=== PATIENT | male | born 1975 | race Caucasian/White ===

== ENCOUNTER 2020-06-18 17:46 | Inpatient (IN) | payer OTHER ==
[~2020-06-18] VITALS: Ht 172.7 cm; Wt 116.3 kg
[2020-06-18] MEDS ORDERED: LACTATED RINGERS 1,000 ML IV ONE (18:45)
[2020-06-18] MEDS ORDERED: ACETAMINOPHEN 500 MG TAB (TYLENOL) PO ONE (18:45)
[2020-06-18] MEDS ORDERED: BENZONATATE 100 MG (TESSALON) CAPSULE PO ONE (18:45)
--- NOTE | 2020-06-18 19:14 | Diagnostic Imaging Report ---
INDICATION: Sepsis. No comparison available. FINDINGS: There are diffuse abnormal alveolar and interstitial opacities throughout the lungs compatible with severe multilobar pneumonia. Lung volumes are diminished. There is no large effusion evident on the frontal view. There is no evidence of a pneumothorax. Heart size is appropriate for AP technique. IMPRESSION: Extensive interstitial and alveolar consolidation throughout the lungs compatible with a multilobar pneumonia. Dictated by: Dictated on workstation # [id number]
[2020-06-18 19:40] LABS: BASOPHILS % (AUTO) 0 % (0-10); EOSINOPHILS # (AUTO) 0.1 10^3/uL (0.0-0.3); EOSINOPHILS % (AUTO) 0 % (0-10); HEMATOCRIT 41 % (40-54); LYMPHOCYTES # (AUTO) 0.7 10^3/uL (1.0-4.0); LYMPHOCYTES % (AUTO) 6 % (12-44); MEAN CORPUSCULAR HEMOGLOBIN 29 pg (25-34); MEAN CORPUSCULAR HGB CONC 34 g/dL (32-36); MEAN CORPUSCULAR VOLUME 84 fL (80-99); MEAN PLATELET VOLUME 9.6 fL (9.0-12.2); MONOCYTES # (AUTO) 0.5 10^3/uL (0.0-1.0); MONOCYTES % (AUTO) 4 % (0-12); NEUTROPHILS # (AUTO) 10.5 10^3/uL (1.8-7.8); NEUTROPHILS % (AUTO) 87 % (42-75); PLATELET COUNT 380 10^3/uL (130-400); WHITE BLOOD COUNT 12.1 10^3/uL (4.3-11.0)
[2020-06-18 20:00] LABS: ANISOCYTOSIS SLIGHT; BAND NEUTROPHILS 1 %; BASOPHILS % (MANUAL) 0 %; EOSINOPHILS % (MANUAL) 0 %; LYMPHOCYTES % (MANUAL) 4 %; MONOCYTES % (MANUAL) 6 %; NEUTROPHILS % (MANUAL) 89 %; POLYCHROMASIA SLIGHT; TOXIC GRANULATION/VACUOLAZATIO 1+
[2020-06-18 20:05] LABS: FIBRIN DEGRADATION PRODUCTS 2.19 UG/ML (0.00-0.49); INR 1.2 (0.8-1.4); PROTHROMBIN TIME PATIENT 15.6 SEC (12.2-14.7)
[2020-06-18 20:15] LABS: ALANINE AMINOTRANSFERASE 28 U/L (0-55); ALBUMIN 3.3 GM/DL (3.2-4.5); ALKALINE PHOSPHATASE 41 U/L (40-136); BILIRUBIN,TOTAL 0.9 MG/DL (0.1-1.0); BUN/CREATININE RATIO 11; CALCIUM 8.8 MG/DL (8.5-10.1); CARBON DIOXIDE 23 MMOL/L (21-32); CHLORIDE 100 MMOL/L (98-107); CREATININE SERUM 0.97 MG/DL (0.60-1.30); GFR ESTIMATED > 60; GLUCOSE 92 MG/DL (70-105); POTASSIUM 4.2 MMOL/L (3.6-5.0); SODIUM 135 MMOL/L (135-145); TOTAL PROTEIN 7.1 GM/DL (6.4-8.2)
[2020-06-18] MEDS ORDERED: IOHEXOL 350 MG/ML 100 ML (OMNIPAQUE 350) VIAL IV ONE (20:30)
[2020-06-18] MEDS ORDERED: HOLD METFORMIN - RECEIVED CONTRAST 20 ML VIAL IV SCH (20:30)
[2020-06-18] MEDS ORDERED: NS 100 ML (IVPB) BAG IV ONE (20:30)
--- NOTE | 2020-06-18 20:44 | ED General ---
General Chief Complaint: Respiratory Problems Stated Complaint: SOB/LOW O2 Nursing Triage Note: THE PT IS AMBULATORY TO THE ROOM WITHOUT DIFFICULTY. SKIGHT SOB IS NOTED ON ARRIVAL. LOC IS NORMAL FOR THE PT. THE PT C/O SOB AND A COUGH. Nursing Sepsis Screen: No Definite Risk Source of Information: Patient Exam Limitations: No Limitations History of Present Illness Date Seen by Provider: Jun 18, 2020 Time Seen by Provider: 18:20 Initial Comments This 45-year-old gentleman presents to the emergency room with increasing shortness of breath, incessant cough, pleuritic chest pain, nausea and vomiting, and diarrhea. He has been ill since June 02 and was diagnosed with COVID-19 on June 16. He checked his oxygen saturations at home and they were in the 80s. Oxygen saturation is 83% on room air here. Patient also complains of thrush. He was seen in the [facility] walk-in clinic and was prescribed doxycycline and dexamethasone. He has worsened despite these measures. He denies any smoking or underlying cardiopulmonary problems except for hypertension. He is febrile with a temperature of 102.0. He is having trouble staying hydrated and has not eaten much in the last 4 days. Allergies and Home Medications Allergies Coded Allergies: Penicillins (Verified Allergy, Unknown, 06/18/20) Patient Home Medication List Home Medication List Reviewed: Yes Review of Systems Review of Systems Constitutional: see HPI EENTM: no symptoms reported Respiratory: see HPI Cardiovascular: no symptoms reported Gastrointestinal: see HPI Genitourinary: no symptoms reported Musculoskeletal: other (Sore abdominal muscles from coughing.) Skin: no symptoms reported Psychiatric/Neurological: No Symptoms Reported Hematologic/Lymphatic: No Symptoms Reported Immunological/Allergic: no symptoms reported Past Wuouuuu-Lnafnk-Mgpktt Hx Past Med/Social Hx: Reviewed Nursing Past Med/Soc Hx Patient Social History Recent Foreign Travel: No Contact w/Someone Who Travel: No Recent Infectious Disease Expo: No Past Medical History Surgeries: No Respiratory: No Cardiac: Yes Hypertension Reproductive Disorders: No Gastrointestinal: No Musculoskeletal: No Endocrine: No HEENT: No Cancer: No Psychosocial: No Integumentary: No Physical Exam-Suspected Sepsis Physical Exam Vital Signs Vital Signs - First Documented 06/18/20 06/18/20 06/18/20 19:54 19:55 23:40 Temp 38.3 Pulse 102 Resp 20 B/P (MAP) 126/79 (95) Pulse Ox 83 O2 Delivery Nasal Cannula O2 Flow Rate 4.00 Capillary Refill : Less Than 3 Seconds Blood Pressure Mean: 95 Height, Weight, BMI Height: '" Weight: lbs. oz. kg; 35.00 BMI Method: General Appearance: No Apparent Distress, WD/WN, Obese HEENT: PERRL/EOMI, Normal ENT Inspection, Other (Thrush on the tongue) Neck: Normal Inspection Respiratory: Lungs Clear, Normal Breath Sounds, No Accessory Muscle Use, No Respiratory Distress Cardiovascular: Regular Rate, Rhythm, No Murmur, Normal Peripheral Pulses Gastrointestinal: Normal Bowel Sounds, Soft, Tenderness (Tender musculature in the epigastrium) Extremity: Normal Inspection, Non Tender, No Calf Tenderness, No Pedal Edema Neurologic/Psychiatric: Alert, Oriented x3, No Motor/Sensory Deficits, Normal Mood/Affect, echo vascular tech II-XII Norm as Tested Skin: normal color, warm/dry Focused Exam Lactate Level 06/18/20 19:30: Lactic Acid Level 1.50 Lactic Acid Level Progress/Results/Core Measures Suspected Sepsis Recent Fever Within 48 Hours: Yes Infection Criteria Present: None New/Unexplained Altered Menta: No Sepsis Screen: No Definite Risk SIRS Temperature: Pulse: 102 Respiratory Rate: 20 Laboratory Tests 06/18/20 19:30: White Blood Count 12.1H 06/19/20 02:10: White Blood Count 8.6 Blood Pressure 126 /79 Mean: 95 06/18/20 19:30: Lactic Acid Level 1.50 Laboratory Tests 06/18/20 19:30: Creatinine 0.97, INR Comment 1.2, Platelet Count 380, Total Bilirubin 0.9 06/19/20 02:10: Creatinine 0.86, Platelet Count 333, Total Bilirubin 0.6 Results/Orders Lab Results Laboratory Tests Test 06/18/20 19:30 06/18/20 22:50 06/18/20 22:52 06/19/20 02:10 Range/Units White Blood Count 12.1 H 8.6 4.3-11.0 10^3/uL Red Blood Count 4.90 4.51 4.30-5.52 10^6/uL Hemoglobin 14.0 13.2 L 13.3-17.7 g/dL Hematocrit 41 39 L 40-54 % Mean Corpuscular Volume 84 86 80-99 fL Mean Corpuscular Hemoglobin 29 29 25-34 pg Mean Corpuscular Hemoglobin Concent 34 34 32-36 g/dL Red Cell Distribution Width 12.3 12.4 10.0-14.5 % Platelet Count 380 333 130-400 10^3/uL Mean Platelet Volume 9.6 9.9 9.0-12.2 fL Immature Granulocyte % (Auto) 2 2 % Neutrophils (%) (Auto) 87 H 92 H 42-75 % Lymphocytes (%) (Auto) 6 L 5 L 12-44 % Monocytes (%) (Auto) 4 1 0-12 % Eosinophils (%) (Auto) 0 0 0-10 % Basophils (%) (Auto) 0 0 0-10 % Neutrophils # (Auto) 10.5 H 7.9 H 1.8-7.8 10^3/uL Lymphocytes # (Auto) 0.7 L 0.4 L 1.0-4.0 10^3/uL Monocytes # (Auto) 0.5 0.1 0.0-1.0 10^3/uL Eosinophils # (Auto) 0.1 0.0 0.0-0.3 10^3/uL Basophils # (Auto) 0.0 0.0 0.0-0.1 10^3/uL Immature Granulocyte # (Auto) 0.3 H 0.2 H 0.0-0.1 10^3/uL Neutrophils % (Manual) 89 % Lymphocytes % (Manual) 4 % Monocytes % (Manual) 6 % Eosinophils % (Manual) 0 % Basophils % (Manual) 0 % Band Neutrophils 1 % Toxic Granulation 1+ Polychromasia SLIGHT Anisocytosis SLIGHT Prothrombin Time 15.6 H 12.2-14.7 SEC INR Comment 1.2 0.8-1.4 Activated Partial Thromboplast Time 29 24-35 SEC D-Dimer 2.19 H 0.00-0.49 UG/ML Sodium Level 135 135 135-145 MMOL/L Potassium Level 4.2 4.6 3.6-5.0 MMOL/L Chloride Level 100 104 98-107 MMOL/L Carbon Dioxide Level 23 20 L 21-32 MMOL/L Anion Gap 12 11 5-14 MMOL/L Blood Urea Nitrogen 11 13 7-18 MG/DL Creatinine 0.97 0.86 0.60-1.30 MG/DL Estimat Glomerular Filtration Rate > 60 > 60 BUN/Creatinine Ratio 11 15 Glucose Level 92 154 H 70-105 MG/DL Lactic Acid Level 1.50 0.50-2.00 MMOL/L Calcium Level 8.8 8.4 L 8.5-10.1 MG/DL Corrected Calcium 9.4 9.1 8.5-10.1 MG/DL Total Bilirubin 0.9 0.6 0.1-1.0 MG/DL Aspartate Amino Transf (AST/SGOT) 39 H 32 5-34 U/L Alanine Aminotransferase (ALT/SGPT) 28 25 0-55 U/L Alkaline Phosphatase 41 43 40-136 U/L Lactate Dehydrogenase 613 H 125-220 U/L Troponin I < 0.028 <0.028 NG/ML C-Reactive Protein High Sensitivity 19.64 H 17.15 H 0.00-0.50 MG/DL Total Protein 7.1 6.7 6.4-8.2 GM/DL Albumin 3.3 3.1 L 3.2-4.5 GM/DL Procalcitonin 0.31 H <0.10 NG/ML Blood Gas Puncture Site RIGHT RADIAL Blood Gas Patient Temperature 38 Arterial Blood pH 7.37 7.37-7.43 Arterial Blood Partial Pressure CO2 40 35-45 MMHG Arterial Blood Partial Pressure O2 118 H 79-93 MMHG Arterial Blood HCO3 23 23-27 MMOL/L Arterial Blood Total CO2 23.6 21.0-31.0 MMOL/L Arterial Blood Oxygen Saturation 98 94-100 % Arterial Blood Base Excess -1.8 -2.5-2.5 MMOL/L Hayes Test UNKNOWN Blood Gas Ventilator Setting NO Blood Gas Inspired Oxygen 4 Urine Color DARK YELLOW Urine Clarity CLEAR Urine pH 6.0 5-9 Urine Specific [place] <=1.005 1.016-1.022 Urine Protein TRACE H NEGATIVE Urine Glucose (UA) NEGATIVE NEGATIVE Urine Ketones NEGATIVE NEGATIVE Urine Nitrite NEGATIVE NEGATIVE Urine Bilirubin NEGATIVE NEGATIVE Urine Urobilinogen 0.2 < = 1.0 MG/DL Urine Leukocyte Esterase NEGATIVE NEGATIVE Urine RBC (Auto) NEGATIVE NEGATIVE Urine RBC NONE /HPF Urine WBC 0-2 /HPF Urine Squamous Epithelial Cells NONE /HPF Urine Crystals NONE /LPF Urine Bacteria TRACE /HPF Urine Casts NONE /LPF Urine Mucus NEGATIVE /LPF Urine Culture Indicated NO Micro Results Microbiology 06/18/20 Influenza Types A,B Antigen (LISA) - Final, Complete My Orders Orders - MARYSOL GONZALEZ MD Cbc With Automated Diff (06/18/20 18:38) Comprehensive Metabolic Panel (06/18/20 18:38) Blood Culture (06/18/20 18:38) Sputum Culture (06/18/20 18:38) Urinalysis (06/18/20 18:38) Urine Culture (06/18/20 18:38) Protime With Inr (06/18/20 18:38) Partial Thromboplastin Time (06/18/20 18:38) Chest 1 View, Ap/Pa Only (06/18/20 18:38) Ed Iv/Invasive Line Start (06/18/20 18:38) Ed Iv/Invasive Line Start (06/18/20 18:38) Vital Signs Adult Sepsis Patie Q15M (06/18/20 18:38) O2 (06/18/20 18:38) Remove Rings In Anticipation O (06/18/20 18:38) Lactic Acid Analyzer (06/18/20 18:38) Fibrin Degradation Products (06/18/20 18:38) Procalcitonin (Pct) (06/18/20 18:38) Hs C Reactive Protein (06/18/20 18:38) LDH (06/18/20 18:38) Ekg Tracing (06/18/20 18:38) Monitor-Rhythm Ecg Trace Only (06/18/20 18:38) Troponin I (06/18/20 18:38) Ed Iv/Invasive Line Start (06/18/20 18:38) Dexamethasone Injection (Decadron Inje (06/19/20 07:00) Lactated Ringers (Lr 1000 Ml Iv Solution (06/18/20 18:45) Benzonatate Capsule (Tessalon Perles) (06/18/20 18:45) Acetaminophen Tablet (Tylenol Tablet) (06/18/20 18:45) Dexamethasone Injection (Decadron Inje (06/18/20 19:00) Dexamethasone Injection (Decadron Inje (06/18/20 18:45) Manual Differential (06/18/20 19:30) Ct Angio Chest W (06/18/20 20:26) Iohexol Injection (Omnipaque 350 Mg/Ml 1 (06/18/20 20:30) Received Contrast (Hold Metformin- Contr (06/18/20 20:30) Ns (Ivpb) (Sodium Chloride 0.9% Ivpb Bag (06/18/20 20:30) Ondansetron Injection (Zofran Injectio (06/18/20 20:45) Fluconazole Tablet (Ed Only) (Diflucan T (06/18/20 20:45) Ondansetron Injection (Zofran Injectio (06/18/20 21:21) Fluconazole Tablet (Ed Only) (Diflucan T (06/18/20 21:21) Arterial Blood Gas (06/18/20 21:26) Enoxaparin Injection (Lovenox Injection) (06/18/20 22:30) Meropenem (Merrem 500 Mg) (06/18/20 22:30) Meropenem (Merrem 500 Mg) (06/18/20 22:38) Enoxaparin Injection (Lovenox Injection) (06/18/20 22:38) Influenza A And B Antigens (06/19/20 01:21) Medications Given in ED Current Medications Medications Dose Ordered Sig/Von Route Start Time Stop Time Status Last Admin Dose Admin Enoxaparin Sodium 40 mg 2230 ONCE SC 06/18/20 22:30 06/18/20 22:40 DC 06/18/20 22:52 40 MG Meropenem 500 mg/ Sterile Water 10 ml @ 200 mls/hr 2230 ONCE IV 06/18/20 22:30 06/18/20 22:40 DC 06/18/20 22:51 200 MLS/HR Vital Signs/I&O 06/18/20 06/18/20 06/18/20 06/19/20 23:28 23:40 23:50 00:00 Temp 37.0 37.0 Pulse 61 70 70 Resp 18 B/P (MAP) 111/68 120/69 120/69 (86) Pulse Ox 94 96 96 O2 Delivery Nasal Cannula Nasal Cannula Nasal Cannula O2 Flow Rate 4.00 4.00 4.00 06/19/20 06/19/20 06/19/20 06/19/20 01:00 03:51 07:00 08:00 Temp 35.9 36.0 Pulse 61 56 62 63 Resp 17 20 B/P (MAP) 121/79 (93) 117/75 (89) Pulse Ox 96 96 O2 Delivery Nasal Cannula Nasal Cannula O2 Flow Rate 4.00 4.00 06/19/20 00:00 Intake Total 1000 ml Balance 1000 ml Capillary Refill : Less Than 3 Seconds Blood Pressure Mean: 95 Progress Note : Time: 20:45 Progress Note Patient was seen and examined. IV fluids were infused and medications were given for symptom management. He was found to be hypoxic with oxygen saturation of 83% on room air. Covid specific therapies included dexamethasone 6 mg IV. Case was reviewed with Dr. Marks who requested antibiotics and Lovenox to be administered as well. CT angiogram of the chest was obtained due to elevated D- dimer. No pulmonary emboli were found. I discussed treatment options with remdesivir and convalescent plasma. Patient consents to both treatments. ECG Initial ECG Impression Date: Jun 18, 2020 Initial ECG Impression Time: 18:41 Initial ECG Rate: 77 Initial ECG Rhythm: Normal Sinus Comment Normal sinus rhythm with no ischemic ST elevation or depression. No abnormal intervals or axis deviation. Diagnostic Imaging Diagonstic Imaging: Xray Plain Films/CT/US/NM/MRI: chest Comments Chest x-ray viewed by me and report reviewed. See report below: NAME: EARL,JIMMY [facility] REC#: [id number] PT STATUS: REG ER : 1975 PHYSICIAN: MARYSOL GONZALEZ MD ADMIT DATE: 06/18/20/ER Signed Date of Exam:06/18/20 CHEST 1 VIEW, AP/PA ONLY INDICATION: Sepsis. No comparison available. FINDINGS: There are diffuse abnormal alveolar and interstitial opacities throughout the lungs compatible with severe multilobar pneumonia. Lung volumes are diminished. There is no large effusion evident on the frontal view. There is no evidence of a pneumothorax. Heart size is appropriate for AP technique. IMPRESSION: Extensive interstitial and alveolar consolidation throughout the lungs compatible with a multilobar pneumonia. Dictated by: Dictated on workstation # [id number] Dict: 06/18/201900 Trans: 06/18/201923 [facility] [id number] Interpreted by: MARCEL WOODS MD Electronically signed by: MARCEL WOODS MD 06/18/201923 Diagonstic Imaging: CT Plain Films/CT/US/NM/MRI: chest Comments CT angiogram chest viewed by me and report reviewed. See report below: NAME: MARIANNA ELLIOTT REC#: [id number] PT STATUS: REG ER : 1975 PHYSICIAN: MARYSOL GONZALEZ MD ADMIT DATE: 06/18/20/ER Signed Date of Exam:06/18/20 CT ANGIO CHEST W PROCEDURE: CT angiography of the chest with contrast. TECHNIQUE: Multiple contiguous axial images were obtained through the chest after uneventful bolus administration of intravenous contrast. 3D reconstructed CTA MIP acquisitions were also performed. Auto Exposure Controls were utilized during the CT exam to meet ALARA standards for radiation dose reduction. INDICATION: Pneumonia. Low O2 sats and shortness of breath. Evaluate for a pulmonary embolism. FINDINGS: There are no CT angiographic findings of a filling defect within the main pulmonary arteries or within the proximal intralobar arteries. There is more limited assessment of the tiny subsegmental branches due to respiratory motion. There are no findings to suggest right ventricular strain. The left ventricle is larger than the right. There is no significant reflux of contrast into the IVC. Aorta is normal in caliber without dissection or aneurysm. Heart size appears appropriate. There is no pericardial collection. Extensive alveolar and interstitial infiltrates are present throughout the lungs compatible with the patient's history of Covid pneumonia. There are trace bilateral pleural effusions. There is no pneumothorax. No pathologic mediastinal or hilar adenopathy demonstrated. The upper abdomen demonstrates no acute process. There is a tiny hiatal hernia. No acute or suspicious osseous abnormality demonstrated within the thoracic spine or within the thorax. IMPRESSION: 1. No findings of a central pulmonary artery filling defect within the main pulmonary arteries or intralobar arteries. There is more limited assessment of the small subsegmental branches due to respiratory motion but no convincing evidence of embolus. 2. No findings of right ventricular strain. 3. Thoracic aorta unremarkable. 4. Extensive pulmonary interstitial and alveolar consolidation compatible with multifocal pneumonia and compatible with history of Covid positivity. 5. Trace effusions. 6. No adenopathy. Dictated by: Dictated on workstation # [id number] Dict: 06/18/202143 Trans: 06/18/202157 [facility] [id number] Interpreted by: MARCEL WOODS MD Electronically signed by: MARCEL WOODS MD 06/18/20 [id number] Departure Communication (Admissions) Time/Spoke to Admitting Phy: 21:25 Dr. Marks Impression Primary Impression: COVID-19 Additional Impressions: Hypoxia Nausea vomiting and diarrhea Pleuritic chest pain Disposition: ADMITTED INPATIENT Condition: Improved Admissions Decision to Admit Reason: Admit from ER (General) Decision to Admit/Date: Jun 18, 2020 Time/Decision to Admit Time: 18:25 MARYSOL GONZALEZ MD Jun 18, 2020 20:43
[2020-06-18] MEDS ORDERED: FLUCONAZOLE 150 MG TABLET (ED ONLY) PO ONE (20:45)
[2020-06-18] MEDS ORDERED: ONDANSETRON 4 MG/2 ML (SDV) Z0FRAN IVP ONE (20:45)
[2020-06-18] MEDS ORDERED: ONDANSETRON 4 MG/2 ML (SDV) Z0FRAN ONE (21:21)
[2020-06-18] MEDS ORDERED: FLUCONAZOLE 150 MG TABLET (ED ONLY) ONE (21:21)
--- NOTE | 2020-06-18 21:57 | Diagnostic Imaging Report ---
PROCEDURE: CT angiography of the chest with contrast. TECHNIQUE: Multiple contiguous axial images were obtained through the chest after uneventful bolus administration of intravenous contrast. 3D reconstructed CTA MIP acquisitions were also performed. Auto Exposure Controls were utilized during the CT exam to meet ALARA standards for radiation dose reduction. INDICATION: Pneumonia. Low O2 sats and shortness of breath. Evaluate for a pulmonary embolism. FINDINGS: There are no CT angiographic findings of a filling defect within the main pulmonary arteries or within the proximal intralobar arteries. There is more limited assessment of the tiny subsegmental branches due to respiratory motion. There are no findings to suggest right ventricular strain. The left ventricle is larger than the right. There is no significant reflux of contrast into the IVC. Aorta is normal in caliber without dissection or aneurysm. Heart size appears appropriate. There is no pericardial collection. Extensive alveolar and interstitial infiltrates are present throughout the lungs compatible with the patient's history of Covid pneumonia. There are trace bilateral pleural effusions. There is no pneumothorax. No pathologic mediastinal or hilar adenopathy demonstrated. The upper abdomen demonstrates no acute process. There is a tiny hiatal hernia. No acute or suspicious osseous abnormality demonstrated within the thoracic spine or within the thorax. IMPRESSION: 1. No findings of a central pulmonary artery filling defect within the main pulmonary arteries or intralobar arteries. There is more limited assessment of the small subsegmental branches due to respiratory motion but no convincing evidence of embolus. 2. No findings of right ventricular strain. 3. Thoracic aorta unremarkable. 4. Extensive pulmonary interstitial and alveolar consolidation compatible with multifocal pneumonia and compatible with history of Covid positivity. 5. Trace effusions. 6. No adenopathy. Dictated by: Dictated on workstation # [id number]
[2020-06-18] MEDS ORDERED: ENOXAPARIN 40 MG/0.4 ML (LOVENOX) SYR SC ONE (22:30)
[2020-06-18] MEDS ORDERED: MEROPENEM 500 MG in WATER (STERILE) FOR INJECTION 10 ML IV ONE (22:30)
[2020-06-18] MEDS ORDERED: MEROPENEM 500 MG VIAL (MERREM) IV ONE (22:38)
[2020-06-18] MEDS ORDERED: ENOXAPARIN 40 MG/0.4 ML (LOVENOX) SYR ONE (22:38)
[2020-06-18] MEDS ORDERED: WATER (STERILE) FOR INJECTION 10 ML ONE (22:39)
[2020-06-18 22:56] LABS: ABG BASE EXCESS -1.8 MMOL/L (-2.5-2.5); ABG OXYGEN SATURATION 98 % (94-100); ABG PCO2 40 MMHG (35-45); ABG PH 7.37 (7.37-7.43); ABG PO2 118 MMHG (79-93); ABG TCO2 23.6 MMOL/L (21.0-31.0); INSPIRED O2 4; PATIENT TEMP 38; VENTILATOR NO
[2020-06-18 22:58] LABS: BILIRUBIN,URINE NEGATIVE (NEGATIVE); CLARITY,URINE CLEAR; GLUCOSE, URINE (UA) NEGATIVE (NEGATIVE); KETONES,URINE NEGATIVE (NEGATIVE); LEUKOCYTE ESTERASE ,URINE NEGATIVE (NEGATIVE); NITRITE,URINE NEGATIVE (NEGATIVE); PROTEIN,URINE TRACE (NEGATIVE)
[2020-06-18 23:03] LABS: COLOR,URINE DARK YELLOW
[2020-06-18 23:04] LABS: BACTERIA,URINE TRACE /HPF; WBC,URINE 0-2 /HPF
[2020-06-18 23:40] VITALS: BP 120/69
--- NOTE | 2020-06-18 23:40 | NUR ---
MARIANNA ELLIOTT admitted to room 427-1, with an admitting diagnosis of COVID-19, HYPOXIA, THRUSH, HYPOVOLEMIA, on 06/18/20 from ED via WHEELCHAIR, accompanied by STAFF.MARIANNA ELLIOTT introduced to surroundings, call light, bed controls, phone, TV, temperature control, lights, meal times, smoking policy, visitor policy, side rail policy, bathrooms and showers. Patient Rights given to patient in the handbook. MARIANNA ELLIOTT verbalizes understanding that [facility] is not responsible for the loss or damage to any personal effects or valuables that are kept in the patients posession during their hospitalization. Patient and/or family were informed about the Rapid Response Team and its purpose.
[2020-06-18] MEDS ORDERED: ACETAMINOPHEN 500 MG TAB (TYLENOL) PO PRN (23:45)
[2020-06-18] MEDS ORDERED: IBUPROFEN 600 MG (MOTRIN) TAB PO PRN (23:45)
[2020-06-18] MEDS ORDERED: ENOXAPARIN 40 MG/0.4 ML (LOVENOX) SYR SC SCH (23:45)
[2020-06-18] MEDS ORDERED: ONDANSETRON 4 MG/2 ML (SDV) Z0FRAN IV PRN (23:45)
[2020-06-18] MEDS ORDERED: fentaNYL INJECTION 100 MCG/2 ML AMP IV PRN (23:45)
[2020-06-19] VITALS (9 sets, daily range): BP systolic 114–143; BP diastolic 56–82
[2020-06-19] MEDS: LACTATED RINGERS 1,000 ML IV SCH ×3 (00:10→19:56)
[2020-06-19 02:44] LABS: BASOPHILS % (AUTO) 0 % (0-10); EOSINOPHILS % (AUTO) 0 % (0-10); HEMATOCRIT 39 % (40-54); HEMOGLOBIN 13.2 g/dL (13.3-17.7); LYMPHOCYTES # (AUTO) 0.4 10^3/uL (1.0-4.0); LYMPHOCYTES % (AUTO) 5 % (12-44); MEAN CORPUSCULAR HEMOGLOBIN 29 pg (25-34); MEAN CORPUSCULAR HGB CONC 34 g/dL (32-36); MEAN CORPUSCULAR VOLUME 86 fL (80-99); MEAN PLATELET VOLUME 9.9 fL (9.0-12.2); MONOCYTES # (AUTO) 0.1 10^3/uL (0.0-1.0); MONOCYTES % (AUTO) 1 % (0-12); NEUTROPHILS # (AUTO) 7.9 10^3/uL (1.8-7.8); NEUTROPHILS % (AUTO) 92 % (42-75); PLATELET COUNT 333 10^3/uL (130-400); WHITE BLOOD COUNT 8.6 10^3/uL (4.3-11.0)
[2020-06-19 02:52] LABS: ALBUMIN 3.1 GM/DL (3.2-4.5); CHLORIDE 104 MMOL/L (98-107); POTASSIUM 4.6 MMOL/L (3.6-5.0); SODIUM 135 MMOL/L (135-145)
[2020-06-19 02:53] LABS: CALCIUM 8.4 MG/DL (8.5-10.1)
[2020-06-19 02:54] LABS: GLUCOSE 154 MG/DL (70-105); TOTAL PROTEIN 6.7 GM/DL (6.4-8.2)
[2020-06-19 02:55] LABS: CARBON DIOXIDE 20 MMOL/L (21-32)
[2020-06-19 02:56] LABS: BILIRUBIN,TOTAL 0.6 MG/DL (0.1-1.0)
[2020-06-19 02:58] LABS: ALKALINE PHOSPHATASE 43 U/L (40-136); CREATININE SERUM 0.86 MG/DL (0.60-1.30); GFR ESTIMATED > 60
[2020-06-19 02:59] LABS: BUN/CREATININE RATIO 15
[2020-06-19 03:01] LABS: ALANINE AMINOTRANSFERASE 25 U/L (0-55)
--- NOTE | 2020-06-19 03:52 | NUR ---
blood bank notified this nurse the convalescent plasma was ready for pt. this nurse to pt's room to obtain consent. this nurse explained the purpose of it and the process of receiving it, pt seems hesitant, and says he wants to wait until he talks to doctor about it, says that " i don't want to get it if i don't need it".
[2020-06-19] MEDS: MEROPENEM 500 MG/SWFI 10 ML IV PUSH IV SCH ×8 (06:19→22:40)
[2020-06-19] MEDS ORDERED: REMDESIVIR 200 MG/NS 250 ML IVPB IV NR ×2 (09:00)
[2020-06-19] MEDS: ENOXAPARIN 40 MG/0.4 ML (LOVENOX) SYR SC SCH ×2 (10:40→21:30)
[2020-06-19] MEDS: NYSTATIN ORAL SUSP 5 ML UDC PO SCH ×4 (10:40→21:30)
[2020-06-19] MEDS ORDERED: DOXY100T2 PO (13:37)
[2020-06-19] MEDS ORDERED: DEXA4TAB PO (13:37)
[2020-06-19] MEDS ORDERED: HYDR25TA4 PO (13:37)
[2020-06-19] MEDS ORDERED: OLME40TA18 PO (13:37)
[2020-06-19] MEDS ORDERED: FLUT12AE6 IH (13:37)
[2020-06-19] MEDS ORDERED: ACET-2267 PO (13:37)
[2020-06-19] MEDS ORDERED: PROM5SYR PO (13:37)
[2020-06-19] MEDS ORDERED: PHEN-832 PO (13:37)
[2020-06-19] MEDS ORDERED: CARV12.53 PO (14:05)
--- NOTE | 2020-06-19 14:06 | NUR ---
SPOKE WITH THE PT (CALLED THE ROOM PHONE), WENT THRU THE EXT MED HISTORY AND CALLED JOHNNIE TO COMPLETE THE MED REC 01-09-2020 CARVEDILOL 12.5MG #60/30DS- PT INSISTS HE TAKES PRESCRIBED, THEREFORE I INCLUDED ON THE MED REC WITH THE LAST FILL DATE 05-06-2020 OLMESARTAN 40MG #30/30DS 05-06-2020 HCTZ #30/30DS 06-09-2020 ADVAIR 230/21 #1 06-09-2020 DEXAMETHASONE 4MG #15/10DS 06-09-2020 DOXYCYCLINE 100MG #20//10DS 06-09-2020 PROMETHAZINE W/ CODEINE #120ML OTC MEDS: TYLENOL SUDAFED PE
--- NOTE | 2020-06-19 15:33 | NUR ---
"RD ASSESSMENT PMHx: HTN; PT INTERACTION: Note pt is currently in COVID isolation, per chart review. Note all diet information for consult for MST score is per Ede RN, or per chart review. Ede states current appetite appears not great. Note avg PO intake 100% x2meal, per chart review. Ede states no current issues with nausea, vomiting, constipation, or diarrhea that she is aware of. Note pt had recent issues with n/v/d per ED Provider note. Note no BM has been recorded, and pt not currently on bowel regimen per chart review. Note unable to determine recent wt hx, per chart review. Note unable to conduct visual assessment d/t isolation precautions. Given PO intake, unknown wt hx, and lack of visual assessment, this RD is unable to determine if pt meets criteria for malnutrition per ASPEN guidelines. Given avg PO intake, it is unlikely pt meets criteria. ABNORMAL NUTRITION-RELATED LAB VALUES LOW: Ca 8.4; alb 3.1; HIGH: glu 154 Est. kcal needs: 2040-2122 kcal | 15-18 kcal/kg Est. Pro needs: 93-116 g Pro | 0.8-1.0 g Pro/kg PES STATEMENT: Given current PO intake, no nutrition diagnosis at this time (NO-1.1). INTERVENTION: Continue with current diet order of Regular diet. DC current supplementation order of Ensure Enlive with meals, as pt is consuming >75% of meals. Will continue to follow and reassess as pt needs, intake, and status change. Jc BRAVO, MS RD LD [phone] cell"
--- NOTE | 2020-06-19 17:20 | History & Physical-Hospitalist ---
History of Present Illness HPI/Chief Complaint Wilfrido Rivera is a 45-year-old male with past medical history of hypertension, obesity, who presented with shortness of breath. He had been diagnosed with COVID about a week ago. He says his symptoms have been going on for a couple weeks. He continues have a cough. He is not having any fevers. He denies any change in taste or smell. He denies any chest pain. He denies any abdominal pain, nausea, or vomiting. He says he has an episode of diarrhea every day. He has been taking dexamethasone and doxycycline as an outpatient. Source: patient Exam Limitations: no limitations Date Seen 06/19/20 Time Seen by a Provider: 11:15 Attending Physician Wendy Marks DO PCP No,Local Physician Referring Physician Date of Admission Jun 18, 2020 at 22:38 Home Medications & Allergies Home Medications Reviewed patient Home Medication Reconciliation performed by pharmacy medication reconciliations obstetrics technician and/or nursing. Patients Allergies have been reviewed. Allergies Allergies Coded Allergies Penicillins (Verified Allergy, Unknown, 06/18/20) Past Gpcuyjb-Nnfczj-Odveqh Hx Past Med/Social Hx: Reviewed Nursing Past Med/Soc Hx Patient Social History Recent Foreign Travel: No Contact w/other who traveled: No Recent Infectious Disease Expo: No (no known contact ) Past Medical History Cardiac: Hypertension Reproductive: No Review of Systems Constitutional: no symptoms reported EENTM: no symptoms reported Respiratory: cough, short of breath Cardiovascular: no symptoms reported Gastrointestinal: diarrhea Genitourinary: no symptoms reported Musculoskeletal: no symptoms reported Skin: no symptoms reported Psychiatric/Neurological: No Symptoms Reported Physical Exam Physical Exam Vital Signs Vital Signs - First Documented 06/18/20 06/18/20 06/18/20 19:54 19:55 23:40 Temp 38.3 Pulse 102 Resp 20 B/P (MAP) 126/79 (95) Pulse Ox 83 O2 Delivery Nasal Cannula O2 Flow Rate 4.00 Capillary Refill : Less Than 3 Seconds Height, Weight, BMI Height: '" Weight: lbs. oz. kg; 38.99 BMI Method: General Appearance: No Apparent Distress, Obese HEENT: PERRL/EOMI, Pharynx Normal Neck: Normal Inspection Respiratory: Lungs Clear, Normal Breath Sounds, No Respiratory Distress Cardiovascular: Regular Rate, Rhythm, No Edema, No Murmur Gastrointestinal: Normal Bowel Sounds, Non Tender, Soft Extremity: Normal Inspection, Non Tender, No Pedal Edema Neurologic/Psychiatric: Alert, Oriented x3, No Motor/Sensory Deficits, Normal Mood/Affect Skin: Normal Color, Warm/Dry Results Results/Procedures Labs Laboratory Tests 06/18/20 19:30 06/19/20 02:10 Patient resulted labs reviewed. Imaging: Reviewed Imaging Report Assessment/Plan Admission Diagnosis acute respiratory failure due to COVID-19 Admission Status: Inpatient Order (span 2 midnights) Reason for Inpatient Admission: respiratory failure requiring supplemental oxygen COVID-19 requiring IV medications Assessment and Plan Acute respiratory failure due to COVID-19 Pneumonia COVID positive at outside facility [place] Chest with no PE, extensive consolidations Procalcitonin elevated D-dimer mildly elevated Started on Decadron and Remdesivir Convalescent plasma ordered Meropenem for bacterial pneumonia Supplemental oxygen as needed HTN Continue home meds Obesity Clinically significant, no acute management needs DVT Prophylaxis: Lovenox Diagnosis/Problems Diagnosis/Problems (1) Acute respiratory failure due to COVID-19 Status: Acute (2) Pneumonia Status: Acute (3) HTN (hypertension) Status: Chronic (4) Obesity Status: Chronic Clinical Quality Measures DVT/VTE Risk/Contraindication: Risk Factor Score Per Nursin RFS Level Per Nursing on Admit: 3=High INA MARTINEZ MD Jun 19, 2020 17:20
--- NOTE | 2020-06-19 20:20 | NUR ---
Dr. Bartlett notified of not having home medication of Advair inhaler 230/21mcg - ok to substitute Advair 115/21mcg per . Pharmacy notified.
[2020-06-19] MEDS ORDERED: NON-FORMULARY MEDICATION 1 EA EA (Fluticasone/Salmeterol (Advair Hfa 230-21 Mcg Inhaler) 2 IH SCH (21:00)
[2020-06-19] MEDS: CARVEDILOL 12.5 MG (COREG) TABLET PO SCH (21:30)
[2020-06-19] MEDS: ADVAIR HFA 115/21 MCG INHALER 8 GM IH SCH (21:36)
--- NOTE | 2020-06-19 21:50 | NUR ---
New order rec for Robitussin DM 5ml q [address] Bartlett
[2020-06-19] MEDS ORDERED: NS IV 500 ML 500 ML ONE (22:23)
[2020-06-19] MEDS: guaiFENesin/DM (ROBITUSSIN DM) 10 ML UDC PO PRN (22:40)
[2020-06-20 00:25] VITALS: BP 130/74
[2020-06-20 04:12] VITALS: BP 120/70
[2020-06-20] MEDS: MEROPENEM 500 MG/SWFI 10 ML IV PUSH IV SCH ×8 (04:20→22:56)
[2020-06-20] MEDS: LACTATED RINGERS 1,000 ML IV SCH (04:20)
[2020-06-20 06:01] LABS: ALBUMIN 2.9 GM/DL (3.2-4.5)
[2020-06-20 06:02] LABS: CHLORIDE 105 MMOL/L (98-107); POTASSIUM 4.2 MMOL/L (3.6-5.0); SODIUM 138 MMOL/L (135-145)
[2020-06-20 06:03] LABS: CALCIUM 8.1 MG/DL (8.5-10.1)
[2020-06-20 06:04] LABS: GLUCOSE 152 MG/DL (70-105)
[2020-06-20 06:05] LABS: CARBON DIOXIDE 23 MMOL/L (21-32)
[2020-06-20 06:06] LABS: BILIRUBIN,TOTAL 0.3 MG/DL (0.1-1.0)
[2020-06-20 06:08] LABS: ALKALINE PHOSPHATASE 39 U/L (40-136); CREATININE SERUM 0.77 MG/DL (0.60-1.30); GFR ESTIMATED > 60
[2020-06-20 06:09] LABS: BUN/CREATININE RATIO 18
[2020-06-20 06:11] LABS: ALANINE AMINOTRANSFERASE 21 U/L (0-55)
[2020-06-20 08:05] VITALS: BP 123/75
--- NOTE | 2020-06-20 08:30 | NUR ---
PATIENT O2 88% ON 4L. PATIENT REQUIRED 10L HIGH FLOW TO MAINTAIN O2 92%. PATIENT IS NOT DYSPNEIC, DENIES C/O. RR 18. CONT TO MONITOR.
[2020-06-20] MEDS: NYSTATIN ORAL SUSP 5 ML UDC PO SCH ×4 (10:03→21:02)
[2020-06-20] MEDS: CARVEDILOL 12.5 MG (COREG) TABLET PO SCH ×2 (10:03→20:55)
[2020-06-20] MEDS: VALSARTAN 160 MG (DIOVAN) TABLET PO SCH (10:04)
[2020-06-20] MEDS: REMDESIVIR INJ 100 MG in NS (IVPB) 230 ML IV SCH (11:17)
[2020-06-20] MEDS: ADVAIR HFA 115/21 MCG INHALER 8 GM IH SCH ×3 (11:20→23:07)
[2020-06-20 11:30] VITALS: BP 128/78
[2020-06-20] MEDS ORDERED: guaiFENesin (MUCINEX) 600 MG TAB PO ONE (12:00)
[2020-06-20] MEDS: guaiFENesin/DM (ROBITUSSIN DM) 10 ML UDC PO PRN ×2 (12:20→20:54)
--- NOTE | 2020-06-20 13:58 | NUR ---
14 MIN CONVERSATION PER PATIENT REQUEST WITH . UPDATED ON PATIENT'S CONDITION, MEDICATION. INQUIRED WITH THIS RN HOW LONG SHE AND THE KIDS WILL BE QUARANTINED? THIS RN REFERRED TO HEALTH DEPARTMENT REGARDING HERSELF AND CHILDREN QUARANTINE TIME. ELABORATED ON HER HISTORY, THIS RN PROVIDED NO ADVICE FOR PERSONAL DECISIONS AND HER HEALTHCARE, ONLY LISTENED AND REFERRED TO HEALTH DEPT.
[2020-06-20 15:49] VITALS: BP 132/79
--- NOTE | 2020-06-20 16:08 | Progress Note - Hospitalist ---
Subjective HPI/CC On Admission Date Seen by Provider: Jun 20, 2020 Time Seen by Provider: 11:30 Wilfrido Rivera is a 45-year-old male with past medical history of hypertension, obesity, who presented with shortness of breath. He had been diagnosed with COVID about a week ago. He says his symptoms have been going on for a couple weeks. He continues have a cough. He is not having any fevers. He denies any change in taste or smell. He denies any chest pain. He denies any abdominal pain, nausea, or vomiting. He says he has an episode of diarrhea every day. He has been taking dexamethasone and doxycycline as an outpatient. Subjective/Events-last exam He slept well. He has been short of breath. He has a very bad cough. He denies fevers. He has been up moving around. He has been eating and drinking. He is not able to lay prone, but can lay on his side. Focused Exam Lactate Level 06/18/20 19:30: Lactic Acid Level 1.50 Objective Exam Vital Signs Vital Signs Date Time Temp Pulse Resp B/P (MAP) Pulse Ox O2 Delivery O2 Flow Rate FiO2 06/20/20 15:49 36.8 63 20 132/79 (96) 98 High Flow N/C 9.00 Capillary Refill : Less Than 3 Seconds General Appearance: No Apparent Distress, Obese Respiratory: Lungs Clear, Normal Breath Sounds, No Respiratory Distress Cardiovascular: Regular Rate, Rhythm, No Edema, No Murmur Gastrointestinal: Normal Bowel Sounds, Non Tender, Soft Extremity: Normal Inspection, Non Tender, No Pedal Edema Neurologic/Psychiatric: Alert, Oriented x3, No Motor/Sensory Deficits, Normal Mood/Affect Skin: Normal Color, Warm/Dry Results/Procedures Lab Laboratory Tests 06/20/20 05:30 Patient resulted labs reviewed. Imaging: Reviewed Imaging Report Assessment/Plan Assessment and Plan Assess & Plan/Chief Complaint Acute respiratory failure due to COVID-19 Pneumonia Oxygen requirement increased from yesterday Continue Decadron, day 2/ Continue Remdesivir, day 2/5 s/p 1 unit convalescent plasma Continue Meropenem Supplemental oxygen as needed HTN Continue home meds Obesity Clinically significant, no acute management needs DVT Prophylaxis: Lovenox Diagnosis/Problems Diagnosis/Problems (1) Acute respiratory failure due to COVID-19 Status: Acute (2) Pneumonia Status: Acute (3) HTN (hypertension) Status: Chronic (4) Obesity Status: Chronic Clinical Quality Measures DVT/VTE Risk/Contraindication: Risk Factor Score Per Nursin RFS Level Per Nursing on Admit: 3=High INA MARTINEZ MD Jun 20, 2020 16:08
--- NOTE | 2020-06-20 17:32 | NUR ---
patient 's called for an update. no new updates to report. sylwia remains at 10L HF, no c/o paitent' mother in law called earlier in day as well and spoke with this rn
[2020-06-20 19:45] VITALS: BP 121/76
[2020-06-20] MEDS: ENOXAPARIN 40 MG/0.4 ML (LOVENOX) SYR SC SCH (20:54)
[2020-06-20] MEDS: guaiFENesin (MUCINEX) 600 MG TAB PO SCH (20:55)
[2020-06-21 00:05] VITALS: BP 121/75
[2020-06-21 04:16] VITALS: BP 138/77
[2020-06-21] MEDS: MEROPENEM 500 MG/SWFI 10 ML IV PUSH IV SCH ×8 (05:29→22:00)
[2020-06-21 05:55] LABS: ALBUMIN 2.8 GM/DL (3.2-4.5); CHLORIDE 106 MMOL/L (98-107); POTASSIUM 4.4 MMOL/L (3.6-5.0); SODIUM 139 MMOL/L (135-145)
[2020-06-21 05:57] LABS: GLUCOSE 115 MG/DL (70-105); TOTAL PROTEIN 5.5 GM/DL (6.4-8.2)
[2020-06-21 05:58] LABS: CARBON DIOXIDE 23 MMOL/L (21-32)
[2020-06-21 05:59] LABS: BILIRUBIN,TOTAL 0.3 MG/DL (0.1-1.0)
[2020-06-21 06:01] LABS: ALKALINE PHOSPHATASE 40 U/L (40-136); CREATININE SERUM 0.75 MG/DL (0.60-1.30); GFR ESTIMATED > 60
[2020-06-21 06:02] LABS: BUN/CREATININE RATIO 20
[2020-06-21 06:04] LABS: ALANINE AMINOTRANSFERASE 18 U/L (0-55)
[2020-06-21 08:00] VITALS: BP_SYST 123; BP_SYST 138; BP_DIAS 75; BP_DIAS 77
[2020-06-21] MEDS: ADVAIR HFA 115/21 MCG INHALER 8 GM IH SCH ×2 (08:08→21:24)
[2020-06-21] MEDS: NYSTATIN ORAL SUSP 5 ML UDC PO SCH ×4 (08:36→21:20)
[2020-06-21] MEDS: VALSARTAN 160 MG (DIOVAN) TABLET PO SCH (08:37)
[2020-06-21] MEDS: CARVEDILOL 12.5 MG (COREG) TABLET PO SCH ×2 (08:37→21:20)
[2020-06-21] MEDS: guaiFENesin (MUCINEX) 600 MG TAB PO SCH ×2 (08:38→21:20)
[2020-06-21] MEDS: REMDESIVIR INJ 100 MG in NS (IVPB) 230 ML IV SCH (11:53)
[2020-06-21 12:00] VITALS: BP 130/75
--- NOTE | 2020-06-21 12:39 | Progress Note - Hospitalist ---
Subjective HPI/CC On Admission Date Seen by Provider: Jun 21, 2020 Time Seen by Provider: 10:35 Wilfrido Rivera is a 45-year-old male with past medical history of hypertension, obesity, who presented with shortness of breath. He had been diagnosed with COVID about a week ago. He says his symptoms have been going on for a couple weeks. He continues have a cough. He is not having any fevers. He denies any change in taste or smell. He denies any chest pain. He denies any abdominal pain, nausea, or vomiting. He says he has an episode of diarrhea every day. He has been taking dexamethasone and doxycycline as an outpatient. Subjective/Events-last exam he is sleeping upon my arrival. He says he is feeling a bit better. He continues have a bad cough. He has been bringing up a bit more sputum. He denies any fevers. He has no other complaints or concerns. Focused Exam Lactate Level 06/18/20 19:30: Lactic Acid Level 1.50 Objective Exam Vital Signs Vital Signs Date Time Temp Pulse Resp B/P (MAP) Pulse Ox O2 Delivery O2 Flow Rate FiO2 06/21/20 12:00 36.0 60 20 130/75 (93) 94 High Flow N/C 9.00 9.00 Capillary Refill : Less Than 3 Seconds General Appearance: No Apparent Distress, Obese Respiratory: Lungs Clear, Normal Breath Sounds, No Respiratory Distress Cardiovascular: Regular Rate, Rhythm, No Edema, No Murmur Gastrointestinal: Normal Bowel Sounds, Non Tender, Soft Extremity: Normal Inspection, Non Tender, No Pedal Edema Neurologic/Psychiatric: Alert, Normal Mood/Affect Skin: Normal Color, Warm/Dry Results/Procedures Lab Laboratory Tests 06/21/20 05:15 Patient resulted labs reviewed. Imaging: Reviewed Imaging Report Assessment/Plan Assessment and Plan Assess & Plan/Chief Complaint Acute respiratory failure due to COVID-19 Pneumonia Oxygen requirement stable, 9 L Continue Decadron, day 3/10 Continue Remdesivir, day 3/5 s/p 1 unit convalescent plasma Continue Meropenem HTN Continue home meds Obesity Clinically significant, no acute management needs DVT Prophylaxis: Lovenox Diagnosis/Problems Diagnosis/Problems (1) Acute respiratory failure due to COVID-19 Status: Acute (2) Pneumonia Status: Acute (3) HTN (hypertension) Status: Chronic (4) Obesity Status: Chronic Clinical Quality Measures DVT/VTE Risk/Contraindication: Risk Factor Score Per Nursin RFS Level Per Nursing on Admit: 3=High INA MARTINEZ MD Jun 21, 2020 12:39
[2020-06-21 15:51] VITALS: BP 121/91
[2020-06-21 19:41] VITALS: BP 141/82
[2020-06-21] MEDS: ENOXAPARIN 40 MG/0.4 ML (LOVENOX) SYR SC SCH (21:20)
[2020-06-21] MEDS: guaiFENesin/DM (ROBITUSSIN DM) 10 ML UDC PO PRN (21:25)
[2020-06-22 00:06] VITALS: BP 135/85
[2020-06-22] MEDS: MEROPENEM 500 MG/SWFI 10 ML IV PUSH IV SCH ×8 (04:24→22:46)
[2020-06-22 04:27] VITALS: BP 122/69
[2020-06-22 06:30] LABS: ALBUMIN 2.8 GM/DL (3.2-4.5); CHLORIDE 108 MMOL/L (98-107); POTASSIUM 4.3 MMOL/L (3.6-5.0); SODIUM 140 MMOL/L (135-145)
[2020-06-22 06:31] LABS: CALCIUM 7.9 MG/DL (8.5-10.1)
[2020-06-22 06:32] LABS: GLUCOSE 97 MG/DL (70-105)
[2020-06-22 06:33] LABS: TOTAL PROTEIN 5.4 GM/DL (6.4-8.2)
[2020-06-22 06:34] LABS: BILIRUBIN,TOTAL 0.3 MG/DL (0.1-1.0); CARBON DIOXIDE 24 MMOL/L (21-32)
[2020-06-22 06:36] LABS: ALKALINE PHOSPHATASE 42 U/L (40-136); CREATININE SERUM 0.74 MG/DL (0.60-1.30); GFR ESTIMATED > 60
[2020-06-22 06:37] LABS: BUN/CREATININE RATIO 20
[2020-06-22 06:39] LABS: ALANINE AMINOTRANSFERASE 28 U/L (0-55)
[2020-06-22 08:00] VITALS: BP 113/77
[2020-06-22] MEDS: VALSARTAN 160 MG (DIOVAN) TABLET PO SCH (08:18)
[2020-06-22] MEDS: NYSTATIN ORAL SUSP 5 ML UDC PO SCH ×4 (08:18→20:11)
[2020-06-22] MEDS: guaiFENesin (MUCINEX) 600 MG TAB PO SCH ×2 (08:18→20:29)
[2020-06-22] MEDS: CARVEDILOL 12.5 MG (COREG) TABLET PO SCH ×2 (08:18→20:11)
[2020-06-22] MEDS: ADVAIR HFA 115/21 MCG INHALER 8 GM IH SCH ×2 (08:20→15:08)
[2020-06-22 12:03] VITALS: BP 133/81
[2020-06-22] MEDS: REMDESIVIR INJ 100 MG in NS (IVPB) 230 ML IV SCH (12:16)
--- NOTE | 2020-06-22 13:15 | Progress Note - Hospitalist ---
Subjective HPI/CC On Admission Date Seen by Provider: Jun 22, 2020 Time Seen by Provider: 13:11 Wilfrido Rivera is a 45-year-old male with past medical history of hypertension, obesity, who presented with shortness of breath. He had been diagnosed with COVID about a week ago. He says his symptoms have been going on for a couple weeks. He continues have a cough. He is not having any fevers. He denies any change in taste or smell. He denies any chest pain. He denies any abdominal pain, nausea, or vomiting. He says he has an episode of diarrhea every day. He has been taking dexamethasone and doxycycline as an outpatient. Subjective/Events-last exam Pt reports feeling better today. Breathing deeper. Objective Exam Vital Signs Vital Signs Date Time Temp Pulse Resp B/P (MAP) Pulse Ox O2 Delivery O2 Flow Rate FiO2 06/22/20 12:03 36.7 69 20 133/81 (98) 94 High Flow N/C 5.00 Capillary Refill : Less Than 3 Seconds General Appearance: No Apparent Distress, WD/WN, Obese Respiratory: Lungs Clear, No Accessory Muscle Use, Other (on 5lpm) Cardiovascular: Regular Rate, Rhythm, No Murmur Neurologic/Psychiatric: Alert, Oriented x3, Normal Mood/Affect Results/Procedures Lab Laboratory Tests 06/22/20 05:39 Patient resulted labs reviewed. Imaging: Reviewed Imaging Report Assessment/Plan Assessment and Plan Assess & Plan/Chief Complaint Acute respiratory failure due to COVID-19 Pneumonia Oxygen requirement down to 5lpm today Continue Decadron, day 4/10 Continue Remdesivir, day 4/5 s/p 1 unit convalescent plasma Continue Meropenem for PNA due to allergies HTN Continue home meds Obesity Clinically significant, no acute management needs DVT Prophylaxis: Lovenox Diagnosis/Problems Diagnosis/Problems (1) Obesity Status: Chronic Qualifiers: Obesity type: unspecified obesity type Serious obesity comorbidity presence: unspecified whether serious comorbidity present Body mass index: BMI 39.0-39.9 (2) HTN (hypertension) Status: Chronic Qualifiers: Hypertension type: essential hypertension Qualified Codes: I10 - Essential (primary) hypertension (3) Acute respiratory failure due to COVID-19 Status: Acute (4) Hypoxia Status: Acute Clinical Quality Measures DVT/VTE Risk/Contraindication: Risk Factor Score Per Nursin RFS Level Per Nursing on Admit: 3=High KAYLIN ALEGRIA MD Jun 22, 2020 13:15
[2020-06-22 16:21] VITALS: BP 112/55
[2020-06-22 20:00] VITALS: BP 137/84
[2020-06-22] MEDS: ENOXAPARIN 40 MG/0.4 ML (LOVENOX) SYR SC SCH (20:10)
[2020-06-22] MEDS: guaiFENesin/DM (ROBITUSSIN DM) 10 ML UDC PO PRN (20:12)
[2020-06-23] VITALS (7 sets, daily range): BP systolic 102–145; BP diastolic 62–86
[2020-06-23 06:41] LABS: ALBUMIN 2.9 GM/DL (3.2-4.5)
[2020-06-23 06:42] LABS: CHLORIDE 107 MMOL/L (98-107); POTASSIUM 4.1 MMOL/L (3.6-5.0); SODIUM 137 MMOL/L (135-145)
[2020-06-23 06:43] LABS: CALCIUM 8.2 MG/DL (8.5-10.1)
[2020-06-23 06:44] LABS: GLUCOSE 120 MG/DL (70-105); TOTAL PROTEIN 5.9 GM/DL (6.4-8.2)
[2020-06-23 06:45] LABS: CARBON DIOXIDE 23 MMOL/L (21-32)
[2020-06-23 06:46] LABS: BILIRUBIN,TOTAL 0.3 MG/DL (0.1-1.0)
[2020-06-23 06:47] LABS: ALKALINE PHOSPHATASE 64 U/L (40-136); CREATININE SERUM 0.76 MG/DL (0.60-1.30)
[2020-06-23 06:48] LABS: GFR ESTIMATED > 60
[2020-06-23 06:49] LABS: BUN/CREATININE RATIO 21
[2020-06-23 06:50] LABS: ALANINE AMINOTRANSFERASE 33 U/L (0-55)
[2020-06-23] MEDS: NYSTATIN ORAL SUSP 5 ML UDC PO SCH ×4 (08:24→21:14)
[2020-06-23] MEDS: guaiFENesin (MUCINEX) 600 MG TAB PO SCH ×2 (08:24→21:14)
[2020-06-23] MEDS: VALSARTAN 160 MG (DIOVAN) TABLET PO SCH (08:24)
[2020-06-23] MEDS: CARVEDILOL 12.5 MG (COREG) TABLET PO SCH ×2 (08:24→21:14)
[2020-06-23] MEDS: ADVAIR HFA 115/21 MCG INHALER 8 GM IH SCH ×2 (09:51→19:52)
--- NOTE | 2020-06-23 10:57 | Progress Note - Hospitalist ---
Subjective HPI/CC On Admission Date Seen by Provider: Jun 23, 2020 Time Seen by Provider: 10:56 Wilfrido Rivera is a 45-year-old male with past medical history of hypertension, obesity, who presented with shortness of breath. He had been diagnosed with COVID about a week ago. He says his symptoms have been going on for a couple weeks. He continues have a cough. He is not having any fevers. He denies any change in taste or smell. He denies any chest pain. He denies any abdominal pain, nausea, or vomiting. He says he has an episode of diarrhea every day. He has been taking dexamethasone and doxycycline as an outpatient. Objective Exam Vital Signs Vital Signs Date Time Temp Pulse Resp B/P (MAP) Pulse Ox O2 Delivery O2 Flow Rate FiO2 06/23/20 09:51 91 Nasal Cannula 5.00 06/23/20 08:00 36.3 65 20 123/84 (97) Capillary Refill : Less Than 3 Seconds Results/Procedures Lab Laboratory Tests 06/23/20 05:30 Patient resulted labs reviewed. Imaging: Reviewed Imaging Report Assessment/Plan Assessment and Plan Assess & Plan/Chief Complaint Acute respiratory failure due to COVID-19 Pneumonia Oxygen requirement down to 5lpm today Continue Decadron, day 4/10 Continue Remdesivir, day 4/5 s/p 1 unit convalescent plasma Continue Meropenem for PNA due to allergies HTN Continue home meds Obesity Clinically significant, no acute management needs DVT Prophylaxis: Lovenox Diagnosis/Problems Diagnosis/Problems (1) Obesity Status: Chronic Qualifiers: Obesity type: unspecified obesity type Serious obesity comorbidity presence: unspecified whether serious comorbidity present Body mass index: BMI 39.0-39.9 (2) HTN (hypertension) Status: Chronic Qualifiers: Hypertension type: essential hypertension Qualified Codes: I10 - Essential (primary) hypertension (3) Acute respiratory failure due to COVID-19 Status: Acute (4) Hypoxia Status: Acute Clinical Quality Measures DVT/VTE Risk/Contraindication: Risk Factor Score Per Nursin RFS Level Per Nursing on Admit: 3=High KAYLIN ALEGRIA MD Jun 23, 2020 10:57
[2020-06-23] MEDS: REMDESIVIR INJ 100 MG in NS (IVPB) 230 ML IV SCH (11:06)
--- NOTE | 2020-06-23 11:09 | Progress Note - Hospitalist ---
Subjective HPI/CC On Admission Date Seen by Provider: Jun 23, 2020 Time Seen by Provider: 11:05 Wilfrido Rivera is a 45-year-old male with past medical history of hypertension, obesity, who presented with shortness of breath. He had been diagnosed with COVID about a week ago. He says his symptoms have been going on for a couple weeks. He continues have a cough. He is not having any fevers. He denies any change in taste or smell. He denies any chest pain. He denies any abdominal pain, nausea, or vomiting. He says he has an episode of diarrhea every day. He has been taking dexamethasone and doxycycline as an outpatient. Subjective/Events-last exam Pt reports feeling well. Having some bloody noses but stop he actually feels like he breathes better after clearing it. offered nasal spray but he declined. Still on 5lpm. Objective Exam Vital Signs Vital Signs Date Time Temp Pulse Resp B/P (MAP) Pulse Ox O2 Delivery O2 Flow Rate FiO2 06/23/20 09:51 91 Nasal Cannula 5.00 06/23/20 08:00 36.3 65 20 123/84 (97) Capillary Refill : Less Than 3 Seconds General Appearance: No Apparent Distress, Obese Respiratory: Lungs Clear, No Respiratory Distress Cardiovascular: Regular Rate, Rhythm, No Murmur Gastrointestinal: Normal Bowel Sounds, Non Tender, Soft Neurologic/Psychiatric: Alert, Oriented x3 Results/Procedures Lab Laboratory Tests 06/23/20 05:30 Patient resulted labs reviewed. Imaging: Reviewed Imaging Report Assessment/Plan Assessment and Plan Assess & Plan/Chief Complaint Acute respiratory failure due to COVID-19 Pneumonia Oxygen requirement still at 5lpm today- continue to wean as able Continue Decadron, day 5 Continue Remdesivir, day 5/ s/p 1 unit convalescent plasma Continue Meropenem for PNA due to allergies HTN Continue home meds Obesity Clinically significant, no acute management needs DVT Prophylaxis: Lovenox Diagnosis/Problems Diagnosis/Problems (1) Obesity Status: Chronic Qualifiers: Obesity type: unspecified obesity type Serious obesity comorbidity presence: unspecified whether serious comorbidity present Body mass index: BM I 39.0-39.9 (2) HTN (hypertension) Status: Chronic Qualifiers: Hypertension type: essential hypertension Qualified Codes: I10 - Essential (primary) hypertension (3) Acute respiratory failure due to COVID-19 Status: Acute (4) Hypoxia Status: Acute Clinical Quality Measures DVT/VTE Risk/Contraindication: Risk Factor Score Per Nursin RFS Level Per Nursing on Admit: 3=High KAYLIN ALEGRIA MD Jun 23, 2020 11:09
[2020-06-23] MEDS: ENOXAPARIN 40 MG/0.4 ML (LOVENOX) SYR SC SCH (21:14)
[2020-06-23] MEDS: guaiFENesin/DM (ROBITUSSIN DM) 10 ML UDC PO PRN (21:18)
[2020-06-24] VITALS: BP 144/81
[2020-06-24 03:50] VITALS: BP 117/79
[2020-06-24 06:36] LABS: ALBUMIN 2.7 GM/DL (3.2-4.5); CHLORIDE 107 MMOL/L (98-107); POTASSIUM 4.3 MMOL/L (3.6-5.0); SODIUM 136 MMOL/L (135-145)
[2020-06-24 06:37] LABS: CALCIUM 7.7 MG/DL (8.5-10.1)
[2020-06-24 06:38] LABS: GLUCOSE 101 MG/DL (70-105); TOTAL PROTEIN 5.2 GM/DL (6.4-8.2)
[2020-06-24 06:39] LABS: CARBON DIOXIDE 24 MMOL/L (21-32)
[2020-06-24 06:40] LABS: BILIRUBIN,TOTAL 0.2 MG/DL (0.1-1.0)
[2020-06-24 06:42] LABS: ALKALINE PHOSPHATASE 53 U/L (40-136); CREATININE SERUM 0.72 MG/DL (0.60-1.30); GFR ESTIMATED > 60
[2020-06-24 06:43] LABS: BUN/CREATININE RATIO 22
[2020-06-24 06:45] LABS: ALANINE AMINOTRANSFERASE 33 U/L (0-55)
[2020-06-24] MEDS: ADVAIR HFA 115/21 MCG INHALER 8 GM IH SCH (07:37)
[2020-06-24 08:00] VITALS: BP 111/68
--- NOTE | 2020-06-24 08:43 | NUR ---
Note avg PO intake >75% meals, per chart review. DC'ed current supplementation order of Ensure Enlive with meals TID. S HEATHER BRAVO, MS RD LD [phone] cell
[2020-06-24] MEDS: CARVEDILOL 12.5 MG (COREG) TABLET PO SCH (09:51)
[2020-06-24] MEDS: VALSARTAN 160 MG (DIOVAN) TABLET PO SCH (09:51)
[2020-06-24] MEDS: guaiFENesin (MUCINEX) 600 MG TAB PO SCH (09:51)
[2020-06-24] MEDS: NYSTATIN ORAL SUSP 5 ML UDC PO SCH ×2 (09:51→15:13)
--- NOTE | 2020-06-24 11:23 | Discharge Summary ---
Diagnosis/Chief Complaint Date of Admission Jun 18, 2020 at 22:38 Date of Discharge Admission Diagnosis acute respiratory failure due to COVID-19 Primary Care No,Local Physician Discharge Diagnosis (1) Obesity Status: Chronic (2) HTN (hypertension) Status: Chronic (3) Acute respiratory failure due to COVID-19 Status: Acute (4) Hypoxia Status: Acute Discharge Summary Discharge Physical Exam Allergies: Coded Allergies: Penicillins (Verified Allergy, Unknown, 06/18/20) Vitals & I&Os Vital Signs Date Time Temp Pulse Resp B/P (MAP) Pulse Ox O2 Delivery O2 Flow Rate FiO2 06/24/20 08:00 36.1 60 20 111/68 (82) 95 High Flow N/C 3.00 Hospital Course Labs (last 24 hrs) Laboratory Tests 06/24/20 05:37: Sodium Level 136, Potassium Level 4.3, Chloride Level 107, Carbon Dioxide Level 24, Anion Gap 5, Blood Urea Nitrogen 16, Creatinine 0.72, Estimat Glomerular Filtration Rate > 60, BUN/Creatinine Ratio 22, Glucose Level 101, Calcium Level 7.7L, Corrected Calcium 8.7, Total Bilirubin 0.2, Aspartate Amino Transf ( T/SGOT) 16, Alanine Aminotransferase (ALT/SGPT) 33, Alkaline Phosphatase 53, Total Protein 5.2L, Albumin 2.7L Microbiology 06/18/20 Urine Culture - Final, Complete >=3 Gram Positive Isolates 06/18/20 Influenza Types A,B Antigen (LISA) - Final, Complete 06/18/20 Blood Culture - Preliminary, Resulted No growth Patient resulted labs reviewed. Pending Labs Laboratory Tests 06/24/20 05:37: Sodium Level 136, Potassium Level 4.3, Chloride Level 107, Carbon Dioxide Level 24, Anion Gap 5, Blood Urea Nitrogen 16, Creatinine 0.72, Estimat Glomerular Filtration Rate > 60, BUN/Creatinine Ratio 22, Glucose Level 101, Calcium Level 7.7, Corrected Calcium 8.7, Total Bilirubin 0.2, Aspartate Amino Transf (AST/SGOT) 16, Alanine Aminotransferase (ALT/SGPT) 33, Alkaline Phosphatase 53, Total Protein 5.2, Albumin 2.7 Imaging: Reviewed Imaging Report Discharge Home Medications: Active Scripts Active Reported Carvedilol 12.5 Mg Tablet 12.5 Mg PO BID LAST FILLED 01-09-2020 #60/30 DAY SUPPLY Sudafed PE (Phenylephrine HCl) 10 Mg Tablet 10 Mg PO Q4H PRN Tylenol Extra Strength (Acetaminophen) 500 Mg Tablet 500-1,000 Mg PO Q8H PRN Olmesartan Medoxomil 40 Mg Tablet 40 Mg PO DAILY Hydrochlorothiazide 25 Mg Tablet 25 Mg PO DAILY Advair Hfa 230-21 Mcg Inhaler (Fluticasone/Salmeterol) 12 Gm Hfa.aer.ad 2 Puff IH BID Dexamethasone 4 Mg Tablet 6 Mg PO DAILY TAKES 1 & (4MG) TAB FILLED 06-09-2020 #15/ DAY SUPPLY Doxycycline Hyclate 100 Mg Tablet 100 Mg PO BID 06-09-2020 #20 DAY SUPPLY Prometh-Codein 6.25-10 mg/5 ml (Promethazine HCl/Codeine) 5 Ml Syrup 5 Ml PO Q4- 6H PRN Instructions to patient/family Please see electronic discharge instructions given to patient. Clinical Quality Measures DVT/VTE Risk/Contraindication: Risk Factor Score Per Nursin RFS Level Per Nursing on Admit: 3=High Problem Qualifiers (1) Obesity: Obesity type: unspecified obesity type Serious obesity comorbidity presence: unspecified whether serious comorbidity present Body mass index: BMI 39.0-39.9 (2) HTN (hypertension): Hypertension type: essential hypertension Qualified Codes: I10 - Essential (primary) hypertension KAYLIN ALEGRIA MD Jun 24, 2020 11:23
--- NOTE | 2020-06-24 11:27 | Discharge Inst-Simple/Standard ---
Discharge Inst-Standard Patient Instructions/Follow Up Plan of Care/Instructions/FU: Please continue to take your medications as written. Please follow up with primary care doctor at [facility] to follow up this hospital stay. Activity as Tolerated: Yes Discharge Diet: Cardiac Diet Return to The Hospital For: Chest pain, shortness of breath, fever, confusion, if you feel you are getting worse. KAYLIN ALEGRIA MD Jun 24, 2020 11:27
[2020-06-24 12:00] VITALS: BP 110/70
--- NOTE | 2020-06-24 15:27 | NUR ---
pt did not drop below 90% during walk test. Addendum: 06/24/20 at 1527 by BARRETT CAPELLAN RT Amended: Links added.
--- NOTE | 2020-06-24 16:05 | NUR ---
CM/SS visited with patient via phone for discharge planning. Plan: Patient will return home at time of discharge. His will be his transportation. Oxygen: Did not qualify. Home: The patient reports that he is independent and able to care for self but is just weak from laying around in the hospital. He stated that his was tested yesterday but believes she is negative. No one in their family is having symptoms. No further needs.
[2020-06-24 16:39] VITALS: BP 122/75
--- NOTE | 2020-06-24 18:00 | NUR ---
MARIANNA ELLIOTT demonstrates understanding of discharge instructions and accurately returns instructions upon questioning. Copy of Post-Discharge Instructions and Medication Discharge Instructions given to PATIENT. MARIANNA ELLIOTT is/is not able to manage continuing needs after discharge. Patients belongings returned to PATIENT. Skin dry and intact; no breakdown noted. Patient discharged from 427-1 on at . MARIANNA ELLIOTT left floor via WC, accompanied by STAFF.
[2020-06-24 18:01] VITALS: BP 122/75
== END 2020-06-24 17:10 | disposition home or self-care (01) | DRG 177 ==
LOC: ER 17:48 → 4TH 22:38
PROVIDERS: ADMIT Internal Medicine; ATTEND Family Medicine
PROC: XW033E5 Introduction of Remdesivir Anti-infective into Peripheral Vein, Percutaneous Approach, New Technology Group 5 (ICD-10-PCS; principal; 2020-06-19)
PROC: XW13325 Transfusion of Convalescent Plasma (Nonautologous) into Peripheral Vein, Percutaneous Approach, New Technology Group 5 (ICD-10-PCS; 2020-06-19)
DX: U07.1 COVID-19 (principal); J12.89 Other viral pneumonia; J96.01 Acute respiratory failure with hypoxia; B37.0 Candidal stomatitis; R19.7 Diarrhea, unspecified; Z73.0 Burn-out; I10 Essential (primary) hypertension; E66.9 Obesity, unspecified; Z68.39 Body mass index [BMI] 39.0-39.9, adult
CPT/HCPCS: 36415; 71045; 71275; 80053; 81000; 82805; 83605; 83615; 83880; 84145; 84484; 85007; 85025; 85027; 85379; 85610; 85730; 86141; 86850; 86900; 86901; 87040; 87088; 87804; 93005; 93041; 94640; 94760; 94761; 96361; 96372; 96374; 96375